=== PATIENT | female | born 1950 | race Caucasian/White ===

== ENCOUNTER → 2017-08-16 | Outpatient (CLI) | payer MEDICARE ==
[~2017-08-16] MED LIST: ACYC800T99 PO; AML5 PO; AMLO-101 PO; ASPI-715 PO; CALC-520 PO; CHOL100061 PO; DIA5 PO; ERGO500025 PO; EZE10 PO; IBUP800T37 PO; LEVO125T77 PO; LIFI1DRO; METO1TAB19 PO; NIT4 SL; RABE20TA33 PO; TRIA15OI20 TP; [UNRECOGNIZED DRUG - CODE] PO; [UNRECOGNIZED DRUG - CODE] PO; [UNRECOGNIZED DRUG - CODE] PO; [UNRECOGNIZED DRUG - REMARK]
--- NOTE | 2017-08-16 14:16 | RADIOLOGY IMAGING REPORT ---
[place] [facility] [place] Faith [place] : 1950 MR: [id number] V: [id number] EXAM DATE: ORDERING PHYSICIAN: KAITY CAMARILLO TECHNOLOGIST: Location: [facility] [place] Patient: Faith Nelson : 1950 Visit/Account:[id number] Date of Sevice: 08/16/2017 CAROTID HISTORY: left pulsatile tinnitis COMPARISON: None. FINDINGS: Grayscale, duplex and color Doppler interrogation of the extracranial carotid and vertebral arteries was performed bilateral. On the right, peak systolic velocities within the common and internal carotid arteries are 96 and 98 cm/sec respectively. No significant plaque identified. Antegrade flow within the common, internal a nd external carotid arteries as well as vertebral artery. ICA/CCA ratio 1.2. On the left, peak systolic velocities within the common and internal carotid arteries are 95 and 89 c m/sec respectively. No significant plaque identified. Antegrade flow within the common, internal an d external carotid arteries as well as vertebral artery. ICA/CCA ratio 0.9. IMPRESSION: No hemodynamically significant lesions identified in the carotid vertebral systems bilaterally Velocity criteria are extrapolated from diameter data as defined by the Society of Radiologists in Ul trasound Consensus Conference Radiology 2003; 229;340-346 Report Dictated By: Nevaeh Erickson MD at 08/16/2017 2:11 PM Report E-Signed By: Nevaeh Erickson MD at 08/16/2017 2:12 PM WSN:[id number]
== END ==
LOC: US 00:38
PROVIDERS: ATTEND Otolaryngology
DX: H93.A2 Pulsatile tinnitus, left ear (principal)
CPT/HCPCS: 93880

== ENCOUNTER → 2017-08-23 | Outpatient (REF) | payer MEDICARE | LOC: ZZSENDIN 16:40 | PROVIDERS: ATTEND Family Medicine | DX: E87.6 Hypokalemia (principal) | CPT/HCPCS: 83735 ==

== ENCOUNTER → 2017-09-20 | Outpatient (CLI) | payer MEDICARE ==
--- NOTE | 2017-09-20 14:42 | RADIOLOGY IMAGING REPORT ---
FACILITY: [facility] PATIENT NAME: Faith Nelson : 1950 MR: [id number] V: [id number] EXAM DATE: ORDERING PHYSICIAN: KAITY CAMARILLO TECHNOLOGIST: Location: [facility] Patient: Faith Nelson : 1950 Visit/Account:[id number] Date of Sevice: 09/20/2017 EXAMINATION: MRA of the [place] HISTORY: Pulsatile tinnitus. COMPARISON: Brain MRI without and with IV contrast dated 01/02/2017. TECHNIQUE: [id number]-evhd-cp-flight angiography was performed in the axial plane on the [place] without IV eden olinium. The exam was tailored for assessment of the [place] only. Only limited sequences were obtai amelia of the rest of the brain. FINDINGS: Petrous carotids: Negative. Carotid siphons / bifurcations: Negative. Anterior / Posterior communicating arteries: Negative. Anterior cerebral arteries: Negative. Middle cerebral arteries: Negative. Intra-cranial vertebral arteries: Negative. Basilar artery: Negative. PICA / AICA / SCA / BOTTOM STAINER: Negative. Non-angiographic Findings: None significant. IMPRESSION: Normal MRA of the [place]. Report Dictated By: Thom Geronimo MD at 09/20/2017 2:34 PM Report E-Signed By: Thom Geronimo MD at 09/20/2017 2:37 PM WSN:[id number]
== END ==
LOC: MRI 01:17
PROVIDERS: ATTEND Otolaryngology
DX: H93.A3 Pulsatile tinnitus, bilateral (principal)
CPT/HCPCS: 70544

== ENCOUNTER → 2017-10-17 | Outpatient (CLI) | payer MEDICARE | LOC: LAB 13:36 | PROVIDERS: ATTEND Internal Medicine Endocrinology, Diabetes & Metabolism | DX: E89.0 Postprocedural hypothyroidism (principal) | CPT/HCPCS: 36415; 84443 ==

== ENCOUNTER → 2017-11-02 | Outpatient (CLI) | payer MEDICARE ==
--- NOTE | 2017-11-02 15:29 | RADIOLOGY IMAGING REPORT ---
FACILITY: [facility] [place] PATIENT NAME: JENNIFER VALENCIA : [id number] MR: [id number] V: [id number] EXAM DATE: ORDERING PHYSICIAN: FRIDA JUNG TECHNOLOGIST: Karine Farr PROCEDURE:BILATERAL DIGITAL SCREENING MAMMOGRAM WITH CAD ASSISTED INTERPRETATION & 3D TOMOSYNTHESIS COMPARISON:Prior mammograms 10/09/16, 09/29/15, 09/22/14, 09/17/13, 08/20/12. INDICATIONS:SCREENING FINDINGS: There is predominant fatty replacement throughout the breasts. The parenchymal pattern has remained stable allowing for difference in mammographic technique & patient positioning. There is no evidence of malignant appearing mass, malignant appearing calcifications or other secondary sign of malignancy in either breast. DIAGNOSTIC CATEGORY 1--NEGATIVE. RECOMMENDATIONS: ROUTINE MAMMOGRAM AND CLINICAL EVALUATION. IMPRESSION: BIRADS 1: Negative No significant abnormality is seen. Dictated by: Nevaeh Erickson M.D. on 11/02/2017 at 12:10 Transcribed by: CHERYLE on 11/02/2017 at 13:23 Approved by: Nevaeh Erickson M.D. on 11/02/2017 at 15:28 [facility]
== END ==
LOC: MAMO 01:51
PROVIDERS: ATTEND Family Medicine
DX: Z12.31 Encounter for screening mammogram for malignant neoplasm of breast (principal)
CPT/HCPCS: 77063; 77067

== ENCOUNTER → 2017-11-27 | Outpatient (CLI) | payer MEDICARE ==
[2017-11-27 12:26] LABS: PLATELET COUNT, AUTOMATED 319 K/uL (150-450)
== END ==
LOC: LAB 11:57
PROVIDERS: ATTEND Internal Medicine Nephrology
DX: I10 Essential (primary) hypertension (principal); N28.1 Cyst of kidney, acquired; Z86.39 Personal history of other endocrine, nutritional and metabolic disease
CPT/HCPCS: 36415; 81001; 82040; 82247; 82310; 82374; 82435; 82565; 82947; 84075; 84132; 84155; 84295; 84450; 84460; 84520; 85025

== ENCOUNTER → 2018-01-16 | Outpatient (CLI) | payer MEDICARE ==
--- NOTE | 2018-01-16 13:53 | RADIOLOGY IMAGING REPORT ---
FACILITY: [facility] [place] PATIENT NAME: Faith Nelson : 1950 MR: [id number] V: [id number] EXAM DATE: ORDERING PHYSICIAN: LINDSAY LANIER TECHNOLOGIST: Location: [facility] Patient: Faith Nelson : 1950 Visit/Account:[id number] Date of Sevice: 01/16/2018 Exam type: SOFT TISSUE HEAD NECK History: Follow-up thyroidectomy for malignancy. Comparison: Ultrasound soft tissues of the neck October 09, 2016. Findings: When compared the prior study again noted are postsurgical changes from a total thyroidectomy. Trans verse soft tissue density in the left thyroid bed is again seen which appear slightly less prominent measuring 8 x 9 mm as opposed to 1.2 x 1.0 cm no pathologic-appearing cervical adenopathy is seen IMPRESSION: 1. No pathological cervical adenopathy is seen [place] shaped hypodensity in the left thyroid bed appears slightly less prominent when compared the prior study likely representing scar tissue or fibrosis. Report Dictated By: Nevaeh Erickson MD at 01/16/2018 1:29 PM Report E-Signed By: Nevaeh Erickson MD at 01/16/2018 1:50 PM WSN:[email or web address]
== END ==
LOC: US 02:37
PROVIDERS: ATTEND Internal Medicine
DX: Z08 Encounter for follow-up examination after completed treatment for malignant neoplasm (principal); Z85.850 Personal history of malignant neoplasm of thyroid
CPT/HCPCS: 76536

== ENCOUNTER 2018-03-10 09:28 | Emergency (ER) | payer MEDICARE ==
[2018-03-10] MEDS ORDERED: LEVO112T44 PO (09:38)
--- NOTE | 2018-03-10 09:47 | ER Report ---
History and Physical Time Seen By MD: 09:46 Hx. of Stated Complaint: REPORTS ANXIETY, RESTLESS AND TACHYCARDIA. HPI/ROS CHIEF COMPLAINT: Palpitations HISTORY OF PRESENT ILLNESS: Patient is a 67-year-old female who states since the middle of January she's been having tachycardia and palpitations. She states her heart rate has been in the low 100 range since that time. She denies actual chest pain or shortness of breath but is more concerned about the rapid heart rate which Causes anxiety. She did see her general practitioner who did an EKG which was read as "normal". He placed her on Xanax which she was taking 1 pill every other day which did seem to help with symptoms. Today she became concerned when her heart rate was 108 by palpation so she came to the emergency department for evaluation. Patient is a smoker. She does have a history of factor V Leydig disorder, and a primary family member who has history of PE. She does follow with cardiology and has seen Dr. Mills in the past. She also follows with endo crinology secondary to problems with her thyroid. She has a history of thyroid cancer status post removal she is not currently undergoing a cancer treatment but rather just yearly follow-up with oncology. REVIEW OF SYSTEMS: Constitutional: No fever, no chills. Eyes: No discharge. ENT: No sore throat. Cardiovascular: No chest pain, palpitations. Respiratory: No cough, no shortness of breath. Gastrointestinal: [No abdominal pain, no vomiting.] Genitourinary: [No hematuria.] Musculoskeletal: [No back pain.] Skin: [No rashes.] Neurological: [No headache.] Allergies: Coded Allergies: prednisolone (Verified Allergy, Severe, GI UPSET, 03/10/18) naproxen (Verified Allergy, Mild, 03/10/18) Home Meds Reported Medications Levothyroxine Sodium (SYNTHROID) 112 Mcg Tablet, 112 MCG PO QDAY, TAB 03/10/18 Amlodipine Besylate (NORVASC) 5 Mg Tablet, 1 TAB PO QDAY, TAB 01/27/16 Cholecalciferol (Vitamin D3) (VITAMIN D3) 3,000 Unit Tablet, 3000 UNIT PO DAILY 01/27/16 Aspirin (Aspirin) 81 Mg Tablet.dr, 81 MG PO, 0 Refills 12/07/08 Rabeprazole Sodium (Aciphex) 20 Mg Tablet.dr, 20 MG PO 02/15/08 Ezetimibe (Zetia) 10 Mg Tab, 10 MG PO QHS 02/15/08 Discontinued Reported Medications Lifitegrast (Xiidra) 5 % Droperette 06/14/17 Calcium Carbonate (TUMS X-STR) 300 Mg Tab.chew, 300 MG PO PRN for GAS/HEARTBURN, TAB.CHEW 01/27/16 Levothyroxine Sodium (SYNTHROID) 125 Mcg Tablet, 125 MCG PO QDAY 01/27/16 Past Medical/Surgical History Past medical history for hyperlipidemia, hypertension, gastroesophageal reflux disease, history of stage III thyroid cancer, history of factor V bleeding disorder, history of cholecystectomy, hysterectomy parathyroidectomy and thyroid cancer surgery 2012 Patient is a smoker Patient has a family history of a sister that has had a pulmonary emboli Hx Smoking: Yes (1/2PPD) Smoking Status: Current: Every Day Smoker Exposure to Second Hand Smoke?: Yes Constitutional Vital Sign - Last 24 Hours 03/10/18 09:33 Temp 98.5 Pulse 104 Resp 20 B/P (MAP) 144/86 Pulse Ox 94 O2 Delivery Room Air Physical Exam General/Constitutional: Patient is awake, alert, nontoxic and in no acute respiratory distress. Head: Normocephalic and atraumatic. Eyes: Conjunctival clear, Sclera are clear and anicteric. Ears:External canals are clear. Tympanic membranes are clear with normal landmarks and light reflex. Nares: No rhinorrhea or bleeding. Turbinates are pink and moist. Oropharyngeal: Mucous membranes are moist. Neck: Supple, no adenopathy. Cardiovascular: Heart is regular rate and rhythm without audible murmurs, rubs or gallops. Pulmonary: Lungs are clear to auscultation bilaterally. There are no wheezes, rales, or rhonchi. Chest rise is symmetrical Abdomen: Soft, nontender, no guarding or peritoneal signs. Extremities: No gross deformities, No peripheral cyanosis. Able to move all 4 extremities. Neuro: Alert and oriented X3, . Skin: No rashes, skin is warm dry and well perfused. Medical Decision Making Data Points Result Diagram: 03/10/18 0940 03/10/18 0940 Laboratory Hematology Test 03/10/18 09:40 03/10/18 11:54 Red Blood Count 5.56 M/uL (4.17-5.56) Mean Corpuscular Volume 93.2 fL (80.0-96.0) Mean Corpuscular Hemoglobin 32.1 pg (26.0-33.0) Mean Corpuscular Hemoglobin Concent 34.5 g/dL (32.0-36.0) Red Cell Distribution Width 14.0 % (11.5-14.5) Mean Platelet Volume 8.6 fL (7.2-11.1) Neutrophils (%) (Auto) 68.5 % (39.4-72.5) Lymphocytes (%) (Auto) 23.6 % (17.6-49.6) Monocytes (%) (Auto) 6.3 % (4.1-12.4) Eosinophils (%) (Auto) 0.4 % (0.4-6.7) Basophils (%) (Auto) 1.2 % (0.3-1.4) Nucleated RBC Relative Count (auto) 0.0 /100WBC Neutrophils # (Auto) 5.7 K/uL (2.0-7.4) Lymphocytes # (Auto) 2.0 K/uL (1.3-3.6) Monocytes # (Auto) 0.5 K/uL (0.3-1.0) Eosinophils # (Auto) 0.0 K/uL (0.0-0.5) Basophils # (Auto) 0.1 K/uL (0.0-0.1) Nucleated RBC Absolute Count (auto) 0.00 K/uL Prothrombin Time 12.5 seconds (12.0-14.4) Prothromb Time International Ratio 0.93 Activated Partial Thromboplast Time 39 seconds (23-35) D-Dimer Quantitative (PE/DVT) 2.66 ug/ml (0-0.50) Sodium Level 139 mmol/L (137-145) Potassium Level 3.9 mmol/L (3.5-5.0) Chloride Level 104 mmol/L (98-107) Carbon Dioxide Level 26 mmol/L (22-31) Blood Urea Nitrogen 11 mg/dl (7-18) Creatinine 0.70 mg/dl (0.52-1.04) Glomerular Filtration Rate Calc > 60.0 Random Glucose 126 mg/dl (75-110) Calcium Level 9.4 mg/dl (8.4-10.2) Total Bilirubin 0.7 mg/dl (0.2-1.3) Aspartate Amino Transf (AST/SGOT) 35 U/L (0-35) Alanine Aminotransferase (ALT/SGPT) 47 U/L (0-56) Alkaline Phosphatase 78 U/L (0-126) B-Type Natriuretic Peptide 17 pg/ml (0-100) Total Protein 7.2 g/dl (6.3-8.2) Albumin 4.2 g/dl (3.5-5.0) Troponin I < 0.012 ng/ml Chemistry Test 03/10/18 09:40 03/10/18 11:54 White Blood Count 8.3 k/uL (4.5-11.0) Red Blood Count 5.56 M/uL (4.17-5.56) Hemoglobin 17.8 g/dL (12.0-16.0) Hematocrit 51.8 % (34.0-47.0) Mean Corpuscular Volume 93.2 fL (80.0-96.0) Mean Corpuscular Hemoglobin 32.1 pg (26.0-33.0) Mean Corpuscular Hemoglobin Concent 34.5 g/dL (32.0-36.0) Red Cell Distribution Width 14.0 % (11.5-14.5) Platelet Count 286 K/uL (150-450) Mean Platelet Volume 8.6 fL (7.2-11.1) Neutrophils (%) (Auto) 68.5 % (39.4-72.5) Lymphocytes (%) (Auto) 23.6 % (17.6-49.6) Monocytes (%) (Auto) 6.3 % (4.1-12.4) Eosinophils (%) (Auto) 0.4 % (0.4-6.7) Basophils (%) (Auto) 1.2 % (0.3-1.4) Nucleated RBC Relative Count (auto) 0.0 /100WBC Neutrophils # (Auto) 5.7 K/uL (2.0-7.4) Lymphocytes # (Auto) 2.0 K/uL (1.3-3.6) Monocytes # (Auto) 0.5 K/uL (0.3-1.0) Eosinophils # (Auto) 0.0 K/uL (0.0-0.5) Basophils # (Auto) 0.1 K/uL (0.0-0.1) Nucleated RBC Absolute Count (auto) 0.00 K/uL Prothrombin Time 12.5 seconds (12.0-14.4) Prothromb Time International Ratio 0.93 Activated Partial Thromboplast Time 39 seconds (23-35) D-Dimer Quantitative (PE/DVT) 2.66 ug/ml (0-0.50) Glomerular Filtration Rate Calc > 60.0 Calcium Level 9.4 mg/dl (8.4-10.2) Total Bilirubin 0.7 mg/dl (0.2-1.3) Aspartate Amino Transf (AST/SGOT) 35 U/L (0-35) Alanine Aminotransferase (ALT/SGPT) 47 U/L (0-56) Alkaline Phosphatase 78 U/L (0-126) B-Type Natriuretic Peptide 17 pg/ml (0-100) Total Protein 7.2 g/dl (6.3-8.2) Albumin 4.2 g/dl (3.5-5.0) Troponin I < 0.012 ng/ml Coagulation Test 03/10/18 09:40 Prothrombin Time 12.5 seconds Prothromb Time International Ratio 0.93 Activated Partial Thromboplast Time 39 seconds D-Dimer Quantitative (PE/DVT) 2.66 ug/ml EKG/Imaging EKG Interpretation 03/10/2018 9:47:07 am initial EKG shows sinus tachycardia with a ventricular rate of 106 bpm. There is nonspecific ST segment and T-wave abnormalities. No prior EKGs to compare with. Monitor Interpretation: Normal Sinus Rhythm ED Course/Re-evaluation Clinical Indication for ER IV: IV Access ED Course 03/10/2018 10:15:54 am After history and physical exam was performed differential diagnosis was formulated which includes but is not limited to pulmonary embolism, acute coronary syndrome, anxiety, dysrhythmia, hyperthyroidism. Plan at this time will be to check a troponin and d-dimer to perform a cardiac workup along with a TSH. 03/10/2018 10:21:36 am d-dimer has returned at 2.66. Troponin is negative. Plan will be CT scan of the chest looking for pulmonary embolism 03/10/2018 11:16:[address] scan of the chest reveals no pulmonary embolism. Plan will be repeat troponin at 1148. 03/10/2018 12:23:28 pm repeat heart enzyme negative patient will be set up for Holter monitor and will follow up with her primary care physician Decision to Disposition Date: Mar 10, 2018 Decision to Disposition Time: 12:23 Depart Departure Latest Vital Signs Vital Signs Date Time Temp Pulse Resp B/P (MAP) Pulse Ox O2 Delivery O2 Flow Rate FiO2 03/10/18 09:33 98.5 104 20 144/86 94 Room Air Impression: Primary Impression: Palpitations Condition: Stable Disposition: HOME OR SELF-CARE Referrals: FRIDA JUNG DO (PCP) 1 Week for reevaluation of your palpitations and for the results of your holter monitor Patient Instructions: Palpitations (DC) Additional Instructions: Continue all your outpatient medications as directed. Wear the Holter monitor for 24 hours and return to the hospital for interpretation. ROXANA SABILLON MD Mar 10, 2018 09:47
[2018-03-10] MEDS ORDERED: ASPIRIN 81 MG CHEW PO ONE (09:50)
[2018-03-10 10:07] LABS: INR 0.93; PLATELET COUNT, AUTOMATED 286 K/uL (150-450)
[2018-03-10] MEDS ORDERED: NS(*) 0.9% 50 ML BAG 50 ML ONE (10:26)
[2018-03-10] MEDS ORDERED: IOPAMIDOL 76% 75 ML INFUS BTL 75 ML ONE (10:26)
--- NOTE | 2018-03-10 11:01 | RADIOLOGY IMAGING REPORT ---
[place] [facility] [place]: Faith [place] : 1950 MR: [id number] V: [id number] EXAM DATE: ORDERING PHYSICIAN: ROXANA SABILLON TECHNOLOGIST: Location: [facility] [place] Patient: Faith Nelson : 1950 Visit/Account:[id number] Date of Sevice: 03/10/2018 CTA CHEST WW/O CNTR (PULM ANG) EXAMINATION: CTA of the chest with IV contrast History : Palpitations, tachycardia, factor V Leiden TECHNIQUE: Pulmonary embolus protocol - Thin-slice axial imaging of the chest was performed during maximal pulmonary arterial opacification with intravenous nonionic iodinated contrast. 3D coronal sla b MIPs and 2D reconstructions in the coronal and sagittal planes were performed to aid in pulmonary e mbolus detection. Bench Shear Operator images have been stored on PACS. One of the following dose optimization techniques was utilized in the performance of this exam: Autom ated exposure control; adjustment of the mA and/or kV according to the patient's size; or use of an i terative reconstruction technique. Specific details can be referenced in the facility's radiology C T exam operational policy. Contrast: 75 cc of Isovue-370 COMPARISON STUDIES: 08/17/2011. FINDINGS: Please note that this exam is optimized for assessment of the pulmonary arteries and is not intended as a diagnostic study of the thoracic aorta, coronary arteries or venous structures. Angiographic Findings: Pulmonary arteries: There are no filling defects in the main, right, left, lobar, segmental or visual ized sub-segmental branches of the pulmonary arterial system Other vasculature: There is calcification of the thoracic aorta. Additional non-angiographic findings: Lungs / Pleura: Patient has an area of lingular scarring. Mild emphysema is noted. Otherwise, no ac [place] pulmonary disease.. Mediastinum / Myrna: negative. Heart / Pericardium: negative. Lymph node assessment: negative Musculoskeletal / Body wall: 1.3 cm skin lesion midline in the lower chest image 214 is likely a se baceous cyst. Please correlate with physical exam. Upper abdomen: negative IMPRESSION: 1. No evidence for pulmonary emboli the subsegmental level. 2. No acute cardiopulmonary disease. 3. 1.3 cm probable subcutaneous sebaceous cyst midline and lower chest image 214 is noted. Please cor relate with physical exam. Report Dictated By: Jaime Romo MD at 03/10/2018 10:50 AM Report E-Signed By: Jaime Romo MD at 03/10/2018 10:58 AM WSN:[id number]
--- NOTE | 2018-03-10 12:15 | EKG ---
[place] [facility] [place] NAME: JENNIFER VALENCIA : [id number] MR: [id number] V: [id number] EXAM DATE: ORDERING PHYSICIAN: ROXANA SABILLON TECHNOLOGIST: SUSAN Panchal Reason : CARDIAC Blood Pressure : / mmHG Vent. Rate : 106 BPM Atrial Rate : 106 BPM P-R Int : 156 ms QRS Dur : 066 ms QT Int : 348 ms P-R-T Axes : 055 086 038 degrees QTc Int : 462 ms Sinus tachycardia Low voltage QRS Nonspecific ST and T wave abnormality Abnormal ECG No previous ECGs available Confirmed by SRIRAM BAOCN ([id number]) on 03/10/2018 3:45:54 PM Referred By: RAMANDEEP Confirmed By:SRIRAM BACON
[2018-03-10 12:30] VITALS: BP 103/73
--- NOTE | 2018-03-11 20:20 | RT HOLTER TEST ---
FACILITY: [facility] [place] PATIENT NAME: JENNIFER VALENCIA : [id number] MR: [id number] V: [id number] EXAM DATE: ORDERING PHYSICIAN: ROXANA SABILLON TECHNOLOGIST: Florence Hook-up date: 2018-03-10 12:37:00 Duration: 24:06:00 Test Indications: Palpitations Medications: Synthroid Zetia Amolodopine Baby ASA [id number] QRS complexes 98 Ventricular ectopics which represent <1 % of total QRS comp. 21 Supraventricular ectopics which represent <1 % of total QRS comp. * Paced QRS complexes which represent % of total QRS comp. VENTRICULAR ECTOPY 98 Isolated 0 Bigeminal Cycles 0 Couplets 0 Runs 0 Beats in Runs * Beats LONGEST at * BPM at :: -- * Beats FASTEST at * BPM at :: -- SUPRAVENTRICULAR ECTOPY 7 Isolated 2 Couplets 1 Runs 10 Beats in Runs 10 Beats LONGEST at 161 BPM at 16:24:15 2018-03-10 10 Beats FASTEST at 161 BPM at 16:24:15 2018-03-10 HEART RATES 60 MIN at 03:36:25 2018-03-11 84 AVG 126 MAX at 07:16:49 2018-03-11 LONGEST RR 1.344 secs at 03:56:11 2018-03-11 S-T LEVELS Channel 1 -2.400 mm MIN at 13:27:00 2018-03-10 0.200 mm MAX at 18:17:30 2018-03-10 Channel 2 -1.200 mm MIN at 12:40:30 2018-03-10 0.800 mm MAX at 14:00:30 2018-03-10 Channel 3 -2.600 mm MIN at 15:56:15 2018-03-10 0.400 mm MAX at 01:23:00 2018-03-11 Sinus rhythm Premature ventricular complexes Supraventricular tachycardia Confirmed by DEANNA ABEL ([id number]) on 03/11/2018 8:20:22 PM Referred By: Overread By: DEANNA ABEL
== END 2018-03-10 12:39 | disposition home or self-care (01) ==
LOC: ER 10:04
DX: R00.2 Palpitations (principal); D68.51 Activated protein C resistance; I10 Essential (primary) hypertension; E78.5 Hyperlipidemia, unspecified
CPT/HCPCS: 36415; 71275; 83880; 84443; 84484; 85025; 85379; 85610; 85730; 93005; 93225; 99284; A9270; J7050; Q9967; 82040; 82247; 82310; 82374; 82435; 82565; 82947; 84075; 84132; 84155; 84295; 84450; 84460; 84520; 93226

== ENCOUNTER → 2018-05-06 | Outpatient (CLI) | payer MEDICARE ==
[~2018-05-06] MED LIST changes: +LEVO112T44 PO
== END ==
LOC: LAB 10:39
PROVIDERS: ATTEND Internal Medicine
DX: E89.0 Postprocedural hypothyroidism (principal); Z86.39 Personal history of other endocrine, nutritional and metabolic disease
CPT/HCPCS: 84439; 84443

== ENCOUNTER → 2018-05-06 | Outpatient (CLI) | payer MEDICARE ==
[2018-05-06 11:10] LABS: PLATELET COUNT, AUTOMATED 359 K/uL (150-450)
== END ==
LOC: LAB 10:43
PROVIDERS: ATTEND Anesthesiology
DX: Z01.812 Encounter for preprocedural laboratory examination (principal); E07.9 Disorder of thyroid, unspecified; H02.403 Unspecified ptosis of bilateral eyelids; H02.103 Unspecified ectropion of right eye, unspecified eyelid; H02.106 Unspecified ectropion of left eye, unspecified eyelid
CPT/HCPCS: 36415; 85025

== ENCOUNTER → 2018-05-27 | Outpatient (CLI) | payer MEDICARE ==
[~2018-05-27] MED LIST changes: +BARIUM SULFATE 176 GM BTL PO ONE; +BARIUM SULFATE 340 GM POWD ONE
--- NOTE | 2018-05-27 16:01 | RADIOLOGY IMAGING REPORT ---
FACILITY: [facility] - [place] PATIENT NAME: Faith Nelson : 1950 MR: [id number] V: [id number] EXAM DATE: ORDERING PHYSICIAN: SHANNON CAMPBELL TECHNOLOGIST: Location: [facility] [place] Patient: Faith Nelson : 1950 Visit/Account:[id number] Date of Sevice: 05/27/2018 Exam type: ESOPHAGRAM History: Cough, reflux Comparison: None. Findings: Double contrast esophagram was performed with thick and thin barium and air contrast. Fluoroscopic s pot imaging was obtained over the hypopharynx, cervical and thoracic esophagus and gastroesophageal j unction. A large amount of gastroesophageal reflux was observed. No mucosal erosions were identifie d. There is mild narrowing at the lower esophageal sphincter. A 12 mm barium tablet passed freely i nto the stomach. The fluoroscopy dose area product was 272.08 micro-Leyva per meter squared. IMPRESSION: 1. Large amount of gastroesophageal reflux although no mucosal erosions identified Mild narrowing of the lower esophageal sphincter Report Dictated By: Nevaeh Erickson MD at 05/27/2018 3:55 PM Report E-Signed By: Nevaeh Erickson MD at 05/27/2018 3:57 PM TAVONN:SAUL
== END ==
LOC: RAD 03:38
PROVIDERS: ATTEND Family Medicine
DX: K21.9 Gastro-esophageal reflux disease without esophagitis (principal)
CPT/HCPCS: 74220

== ENCOUNTER → 2018-06-27 | Outpatient (CLI) | payer MEDICARE ==
[~2018-06-27] MED LIST changes: -BARIUM SULFATE 176 GM BTL PO ONE; -BARIUM SULFATE 340 GM POWD ONE
== END ==
LOC: LAB 10:54
PROVIDERS: ATTEND Internal Medicine
DX: E89.0 Postprocedural hypothyroidism (principal)
CPT/HCPCS: 36415; 84439; 84443

== ENCOUNTER → 2018-08-22 | Outpatient (CLI) | payer MEDICARE | LOC: LAB 11:05 | PROVIDERS: ATTEND Internal Medicine | DX: E89.0 Postprocedural hypothyroidism (principal) | CPT/HCPCS: 36415; 84439; 84443; 84481 ==

== ENCOUNTER → 2018-10-10 | Outpatient (CLI) | payer MEDICARE | LOC: LAB 10:48 | PROVIDERS: ATTEND Internal Medicine | DX: E89.0 Postprocedural hypothyroidism (principal) | CPT/HCPCS: 36415; 84439; 84443; 84481 ==

== ENCOUNTER → 2018-12-05 | Outpatient (CLI) | payer MEDICARE ==
--- NOTE | 2018-12-05 14:26 | RADIOLOGY IMAGING REPORT ---
FACILITY: [facility] [place] PATIENT NAME: Faith Nelson : 1950 MR: [id number] V: [id number] EXAM DATE: ORDERING PHYSICIAN: SHANNON CAMPBELL TECHNOLOGIST: Location: [facility] Patient: Faith Nelson : 1950 Visit/Account:[id number] Date of Sevice: 12/05/2018 DEXA Scan Clinical history: Osteopenia, hyperparathyroidism. Comparison: DEXA scan from 10/09/2016. LUMBAR SPINE: The bone mineral density (BMD) measured from L1-L4 correlates with a Z-score of -0.3 and a T-score of -1.7 which is osteopenia as defined by the World Health Organization. The corresponding risk of fra cture in the lumbar spine is 3-4 times increased compared with a young adult reference population. T his value has decrease by 8.7 % since the prior study. More than 5% change is considered significant . HIP: Bone mineral density (BMD) measured in the LEFT total hip region correlates with a Z-score 0.5 and a T-score of by 0.6 which is normal as defined by the World Health Organization. The corresponding risk of fracture in the hip is 1-2 t imes increased compared to a young adult reference population. This value has decrease by 1.7 % since the prior study. More than 5% change is considered significant. T score left femoral neck -0.8 Bone mineral density (BMD) measured in the Femoral Neck region measures 0.924 g/cm?. DEXA Scan FOREARM: The bone mineral density (BMD) measured in the ULTRADISTAL Left forearm, where trabecular bone predom inates, correlates with a Z-score of 0.1 and a T-score of -1.4 which is osteopenia as defined by the World Health Organization. The corresponding risk of fracture in the distal forearm is 2-3 times inc reased compared with a young adult reference population. The bone mineral density (BMD) in the MIDSHAFT of the forearm, where cortical bone predominates, matias elates with a Z-score of is 1.6 and a T-score of -3.1 which is osteoporosis as defined by the World ealth Organization. The corresponding risk of fracture in the midshaft of the forearm is 812 times in creased compared with a young adult reference population. IMPRESSION: 1. Lumbar spine: Osteopenia. There has been 8.7% decrease in the bone mineral density since the pre vious exam. 2. Left Total Hip: Normal. There has been 1.7% decrease in the bone mineral density since the previ ous exam. 3. Femoral Neck: Bone Mineral Density is 0.924 g/cm? 4. Left forearm: Osteoporosis The next DEXA scan of this patient should include the following sites: L1-L4 and the left hip. And l eft forearm FRAX? WHO Fracture Risk Assessment Tool link: <http://www.shef.ac.uk/FRAX/tool.jsp?locationValue=9> PLEASE NOTE: 1) The World Health Organization defines low BMD as follows: T-score Normal > -1 Osteopenia < -1 and > -2.5 Osteoporosis < -2.5 without fractures Established osteoporosis < -2.5 with fractures 2) In general, you may wish to consider: Diagnosis Treatment Follow-up DEXA Normal BMD Prevention 2-3 years Osteopenia Prevention/therapy 1-2 years Osteoporosis Therapy Yearly 3) Fracture risk estimated from the T-score is more accurate for vertebral fractures (often spontane ous) than for hip fractures. Report Dictated By: Nevaeh Erickson MD at 12/05/2018 1:58 PM Report E-Signed By: Nevaeh Erickson MD at 12/05/2018 2:22 PM WSN:[email or web address]
--- NOTE | 2018-12-09 16:37 | RADIOLOGY IMAGING REPORT ---
FACILITY: [facility] - [place] PATIENT NAME: JENNIFER VALENCIA : [id number] MR: [id number] V: [id number] EXAM DATE: ORDERING PHYSICIAN: SHANNON CAMPBELL TECHNOLOGIST: Karine Farr PROCEDURE: BILATERAL DIGITAL SCREENING MAMMOGRAM WITH CAD ASSISTED INTERPRETATION & 3D TOMOSYNTHESIS REASON FOR STUDY: Screening FAMILY HISTORY OF BREAST CANCER: None reported BREAST PROCEDURES/TREATMENTS: None reported COMPARISON: 11/02/17, 10/09/16, 09/29/15, 09/22/14, 09/17/13, 08/10/12 VIEWS OBTAINED: Bilateral 2D & 3D full field CC & MLO projections BREAST DENSITY: The breasts are almost entirely fatty. MAMMOGRAM FINDINGS: The parenchymal pattern has remained stable allowing for difference in mammographic technique & patient positioning. IMPRESSION: BIRADS 1: Negative. DIAGNOSTIC CATEGORY 1--NEGATIVE. RECOMMENDATIONS: ROUTINE MAMMOGRAM AND CLINICAL EVALUATION. Dictated by: Nevaeh Ericksno M.D. on 12/05/2018 at 15:21 Transcribed by: LORENZO on 12/06/2018 at 11:17 Approved by: Randy Freedman on 12/09/2018 at 16:35 [facility]
== END ==
LOC: MAMO 00:59
PROVIDERS: ATTEND Family Medicine
DX: Z12.31 Encounter for screening mammogram for malignant neoplasm of breast (principal); M85.88 Other specified disorders of bone density and structure, other site
CPT/HCPCS: 77063; 77067; 77080; 77081

== ENCOUNTER → 2018-12-23 | Outpatient (CLI) | payer MEDICARE ==
[2018-12-23 10:44] LABS: PLATELET COUNT, AUTOMATED 300 K/uL (150-450)
== END ==
LOC: LAB 10:19
PROVIDERS: ATTEND Internal Medicine Nephrology
DX: N28.1 Cyst of kidney, acquired (principal); I10 Essential (primary) hypertension; Z86.39 Personal history of other endocrine, nutritional and metabolic disease
CPT/HCPCS: 36415; 81001; 82040; 82310; 82374; 82435; 82565; 82947; 84100; 84132; 84295; 84520; 85025

== ENCOUNTER 2019-02-05 11:09 | Emergency (ER) | payer MEDICARE ==
--- NOTE | 2019-02-05 11:13 | ER Report ---
History and Physical Time Seen By MD: 11:09 HPI/ROS CHIEF COMPLAINT: Dizziness upon sitting HISTORY OF PRESENT ILLNESS: 68-year-old female patient presents to emergency room with complaint of dizziness. Patient states that she has been feeling worse as far as her dizziness goes today. She states that prior to that she noticed that she did have dizziness every time she sat down during the day. She states she does not have any dizziness when she gets up in the morning. She states she has no dizziness upon ambulation or with any activity. She states that as far worse when she sits down. States when that does occur she typically wants to pa ss out to the right hand side. Patient denies any vomiting, diarrhea. She states she has been nauseated. Patient states this been going on for the past 18 months that seems to worse today. REVIEW OF SYSTEMS: Respiratory: No cough, no dyspnea. Cardiovascular: No chest pain, no palpitations. Gastrointestinal: As noted above Musculoskeletal: No back pain. Allergies: Coded Allergies: prednisolone (Verified Allergy, Severe, GI UPSET, 03/10/18) naproxen (Verified Allergy, Mild, 03/10/18) Home Meds Reported Medications Potassium Chloride (POTASSIUM CHLORIDE) 10 Meq Capsule.er, 10 MEQ PO 02/05/19 Levothyroxine Sodium (SYNTHROID) 112 Mcg Tablet, 100 MCG PO QDAY, TAB 03/10/18 Amlodipine Besylate (NORVASC) 5 Mg Tablet, 1 TAB PO QDAY, TAB 01/27/16 Cholecalciferol (Vitamin D3) (VITAMIN D3) 3,000 Unit Tablet, 3000 UNIT PO DAILY 01/27/16 Aspirin (Aspirin) 81 Mg Tablet.dr, 81 MG PO, 0 Refills 12/07/08 Rabeprazole Sodium (Aciphex) 20 Mg Tablet.dr, 20 MG PO 02/15/08 Ezetimibe (Zetia) 10 Mg Tab, 10 MG PO QHS 02/15/08 Past Medical/Surgical History Patient has a past medical history of hypertension, reflux, cholecystitis, hiatal hernia, fibroids, osteopenia, arthritis, hypothyroidism, thyroid cancer. Patient has surgical history of thyroid surgery 2, hysterectomy, cholecystectomy, ureter repair. Patient has a family medical history of cancer, CAD, stroke. Reviewed Nurses Notes: Yes Hx Smoking: Yes (1/2PPD) Smoking Status: Current: Every Day Smoker Exposure to Second Hand Smoke?: Yes Constitutional Vital Sign - Last 24 Hours 02/05/19 02/05/19 02/05/19 02/05/19 11:10 11:13 11:39 13:00 Temp 98.2 Pulse 101 93 95 Resp 20 16 26 B/P (MAP) 125/84 (98) 125/84 Pulse Ox 91 90 90 02/05/19 02/05/19 02/05/19 02/05/19 13:30 13:35 13:59 14:05 Pulse 88 83 80 Resp 10 14 38 B/P (MAP) 121/71 (88) Pulse Ox 93 94 89 Physical Exam General Appearance: The patient is alert, has no immediate need for airway protection and no current signs of toxicity. Respiratory: Chest is non tender, lungs are clear to auscultation. Cardiac: regular rate and rhythm Gastrointestinal: Abdomen is soft and non tender, no masses, bowel sounds normal. Musculoskeletal: Neck: Neck is supple and non tender. Extremities have full range of motion and are non tender. Skin: No rashes or lesions. Neuro: Patient was alert and oriented 4, cranial nerves II through XII grossly intact. Patient did have nystagmus with leftward gaze but was fatigable of 4-5 beats. DIFFERENTIAL DIAGNOSIS: After history and physical exam differential diagnosis was considered for dizziness including but not limited to peripheral and central causes of vertigo, orthostatic causes including dehydration, and blood loss. Medical Decision Making Data Points Result Diagram: 02/05/19 1123 02/05/19 1123 Laboratory Hematology Test 02/05/19 11:23 White Blood Count 8.5 k/uL (4.5-11.0) Red Blood Count 5.76 M/uL (4.17-5.56) H Hemoglobin 18.4 g/dL (12.0-16.0) H Hematocrit 53.5 % (34.0-47.0) H Mean Corpuscular Volume 92.9 fL (80.0-96.0) Mean Corpuscular Hemoglobin 32.0 pg (26.0-33.0) Mean Corpuscular Hemoglobin Concent 34.5 g/dL (32.0-36.0) Red Cell Distribution Width 14.2 % (11.5-14.5) Platelet Count 319 K/uL (150-450) Mean Platelet Volume 7.8 fL (7.2-11.1) Neutrophils (%) (Auto) 61.9 % (39.4-72.5) Lymphocytes (%) (Auto) 29.4 % (17.6-49.6) Monocytes (%) (Auto) 7.4 % (4.1-12.4) Eosinophils (%) (Auto) 0.5 % (0.4-6.7) Basophils (%) (Auto) 0.8 % (0.3-1.4) Nucleated RBC Relative Count (auto) 0.1 /100WBC Neutrophils # (Auto) 5.3 K/uL (2.0-7.4) Lymphocytes # (Auto) 2.5 K/uL (1.3-3.6) Monocytes # (Auto) 0.6 K/uL (0.3-1.0) Eosinophils # (Auto) 0.0 K/uL (0.0-0.5) Basophils # (Auto) 0.1 K/uL (0.0-0.1) Nucleated RBC Absolute Count (auto) 0.01 K/uL Chemistry Test 02/05/19 11:23 Sodium Level 139 mmol/L (137-145) Potassium Level 4.1 mmol/L (3.5-5.0) Chloride Level 104 mmol/L (98-107) Carbon Dioxide Level 28 mmol/L (22-31) Blood Urea Nitrogen 12 mg/dl (7-18) Creatinine 0.90 mg/dl (0.52-1.04) Glomerular Filtration Rate Calc > 60.0 Random Glucose 113 mg/dl (75-110) Calcium Level 9.8 mg/dl (8.4-10.2) Total Bilirubin 0.5 mg/dl (0.2-1.3) Aspartate Amino Transf (AST/SGOT) 19 U/L (0-35) Alanine Aminotransferase (ALT/SGPT) 32 U/L (0-56) Alkaline Phosphatase 76 U/L (0-126) Troponin I < 0.012 ng/ml Total Protein 7.2 g/dl (6.3-8.2) Albumin 4.2 g/dl (3.5-5.0) Urinalysis Test 02/05/19 12:01 Urine Color Yellow Urine Clarity Slightly-cloudy Urine pH 7.0 pH (4.8-9.5) Urine Specific [place] 1.005 Urine Protein Negative mg/dL (NEGATIVE) Urine Glucose (UA) Negative mg/dL (NEGATIVE) Urine Ketones Negative mg/dL (NEGATIVE) Urine Blood Negative (NEGATIVE) Urine Nitrite Negative (NEGATIVE) Urine Bilirubin Negative (NEGATIVE) Urine Urobilinogen Negative mg/dL (0.2-1.9) Urine Leukocyte Esterase Negative (NEGATIVE) Urine RBC 1 /HPF (0-2/HPF) Urine WBC 1 /HPF (0-5/HPF) Urine Squamous Epithelial Cells Few /LPF (</=FEW) Urine Bacteria Negative /HPF (NONE-FEW) Urine Mucus None /HPF (NONE-FEW) Urine Yeast (Budding) Few /HPF EKG/Imaging Imaging CHEST PA LAT Additional pertinent History: Dizziness COMPARISON STUDIES: FINDINGS: Support lines and catheters: None Lungs and Pleura: Mild coarse bronchitic changes consistent with smoking history. No infiltrate, consolidation, or mass lesion. No effusions. Heart and vasculature: Negative. Myrna and Mediastinum: Negative. Bones and Chest wall: Negative. Upper Abdomen: Negative. IMPRESSION: 1. Negative chest for acute cardiopulmonary disease Report Dictated By: Jalen Koenig MD at 02/05/2019 12:04 PM Report E-Signed By: Jalen Koenig MD at 02/05/2019 12:18 PM EXAMINATION: Brain MRI without IV contrast HISTORY: Dizziness. COMPARISON: MRI of the brain from 12/03/2016. TECHNIQUE: Multi-planar, multi-sequence brain MRI was performed without IV contrast administration. FINDINGS: Brain and other intracranial structures: Ventricles and sulci are normal in size. Brain morphology and signal characteristics are within normal limits. No midline shift, mass, hemorrhage, or acute infarct. Calvarium / scalp: Negative. Skull base: Negative. Visualized sinuses / orbits: Negative. IMPRESSION: Normal noncontrast brain MRI without intracranial mass lesion, acute infarct or hemorrhage. Report Dictated By: Jorge Calle MD at 02/05/2019 1:21 PM Report E-Signed By: Jogre Calle MD at 02/05/2019 1:30 PM ED Course/Re-evaluation ED Course Patient was admitted to an exam room, history and physical were obtained. Differential diagnoses were considered. On examination lungs are clear, heart is regular, abdomen soft nontender. Neurologically the patient was intact throughout. Patient did have some nystagmus with leftward gaze. That was fatigable and stopped after 4-5 beats. An IV was started, a CBC, CMP, urinalysis, MRI of the brain, chest x-ray, EKG were done. Lab results were u nremarkable. Chest x-ray showed no acute cardiopulmonary processes. EKG showed a normal sinus rhythm with low-voltage QRS. MRI of the brain was negative. I discussed the findings with the patient. We will go ahead and discharge her home at this time. We will go ahead and have her start on a scopolamine patch. Patient did receive a scopolamine patch for her trip which she is going on, she is going to [place] in 2 days. We will have her use that during the duration of the [facility] and then have her follow-up with her primary care provider upon returning home. Patient is return to emergency room if condition worsens. Patient and her verbalized understanding and agreement with plan. Decision to Disposition Date: Feb 05, 2019 Decision to Disposition Time: 14:22 Depart Departure Latest Vital Signs Vital Signs Date Time Temp Pulse Resp B/P (MAP) Pulse Ox O2 Delivery O2 Flow Rate FiO2 02/05/19 14:05 80 38 89 02/05/19 13:59 121/71 (88) 02/05/19 11:13 98.2 Impression: Primary Impression: Dizziness Condition: Improved Disposition: HOME OR SELF-CARE Referrals: FRIDA JUNG DO (PCP) Patient Instructions: Dizziness (ED) Additional Instructions: Use the scopolomine. Get plenty of rest. Increase fluid intake. Follow up with your primary care provider when you get back from your trip. Return to the ER if condition worsens. THO ARANGO Feb 05, 2019 11:13
[2019-02-05] MEDS ORDERED: POTA10CA40 PO (11:22)
[2019-02-05] MEDS ORDERED: NS(*) 0.9% 1000 ML BAG 1,000 ML IV ONE (11:44)
[2019-02-05 11:52] LABS: PLATELET COUNT, AUTOMATED 319 K/uL (150-450)
--- NOTE | 2019-02-05 12:26 | RADIOLOGY IMAGING REPORT ---
FACILITY: [facility] PATIENT NAME: Faith Nelson : 1950 MR: [id number] V: [id number] EXAM DATE: ORDERING PHYSICIAN: THO ARANGO TECHNOLOGIST: Location: [facility] Patient: Faith Nelson : 1950 Visit/Account:[id number] Date of Sevice: 02/05/2019 CHEST PA LAT Additional pertinent History: Dizziness COMPARISON STUDIES: FINDINGS: Support lines and catheters: None Lungs and Pleura: Mild coarse bronchitic changes consistent with smoking history. No infiltrate, co nsolidation, or mass lesion. No effusions. Heart and vasculature: Negative. Myran and Mediastinum: Negative. Bones and Chest wall: Negative. Upper Abdomen: Negative. IMPRESSION: 1. Negative chest for acute cardiopulmonary disease Report Dictated By: Jalen Koenig MD at 02/05/2019 12:04 PM Report E-Signed By: Jalen Koenig MD at 02/05/2019 12:18 PM WSN:[id number]
--- NOTE | 2019-02-05 13:39 | RADIOLOGY IMAGING REPORT ---
FACILITY: [facility] - [place] PATIENT NAME: Faith Nelson : 1950 MR: [id number] V: [id number] EXAM DATE: ORDERING PHYSICIAN: THO ARANGO TECHNOLOGIST: Location: [facility] [place] Patient: Faith Nelson : 1950 Visit/Account:[id number] Date of Sevice: 02/05/2019 EXAMINATION: Brain MRI without IV contrast HISTORY: Dizziness. COMPARISON: MRI of the brain from 12/03/2016. TECHNIQUE: Multi-planar, multi-sequence brain MRI was performed without IV contrast administration. FINDINGS: Brain and other intracranial structures: Ventricles and sulci are normal in size. Brain morphology a nd signal characteristics are within normal limits. No midline shift, mass, hemorrhage, or acute infarct. Calvarium / scalp: Negative. Skull base: Negative. Visualized sinuses / orbits: Negative. IMPRESSION: Normal noncontrast brain MRI without intracranial mass lesion, acute infarct or hemorrhage. Report Dictated By: Jorge Calle MD at 02/05/2019 1:21 PM Report E-Signed By: Jorge Calle MD at 02/05/2019 1:30 PM WSN:[id number]
[2019-02-05 13:59] VITALS: BP 121/71
[2019-02-05] MEDS ORDERED: SCOPOLAMINE 1.5 MG PATCH TD ONE (14:30)
--- NOTE | 2019-02-05 14:58 | EKG ---
FACILITY: [facility] PATIENT NAME: JENNIFER VALENCIA : [id number] MR: [id number] V: [id number] EXAM DATE: ORDERING PHYSICIAN: THO ARANGO TECHNOLOGIST: JOLIE Test Reason : SYNCOPE Blood Pressure : / mmHG Vent. Rate : 092 BPM Atrial Rate : 092 BPM P-R Int : 154 ms QRS Dur : 076 ms QT Int : 328 ms P-R-T Axes : 023 095 -20 degrees QTc Int : 405 ms Sinus rhythm Low voltage QRS Nonspecific T wave abnormality Abnormal ECG Confirmed by SRIRAM BACON ([id number]) on 02/06/2019 5:32:42 AM Referred By: ITA Confirmed By:SRIRAM BACON
== END 2019-02-05 14:43 | disposition home or self-care (01) ==
LOC: ER 11:23
DX: R42 Dizziness and giddiness (principal)
CPT/HCPCS: 70551; 71046; 81001; 84484; 85025; 93005; 96360; 99284; J7030; 82040; 82247; 82310; 82374; 82435; 82565; 82947; 84075; 84132; 84155; 84295; 84450; 84460; 84520